=== PATIENT | male | born 1955 | race African-American/Black ===

== ENCOUNTER 2017-08-23 19:43 | Emergency (ER) | payer OTHER ==
[~2017-08-23] VITALS: Ht 180.3 cm; Wt 80.3 kg
[2017-08-23 20:26] LABS: HEMATOCRIT 45.6 % (38.0-50.0); HEMOGLOBIN 14.9 G/DL (12.5-16.6); MCH 25.2 PG (29.0-34.0); MCHC 32.7 G/DL (30.0-36.0); PLATELET COUNT 243 K/uL (156-360); RBC DIS.WIDTH-CV 15.4 % (11.8-14.6); RBC DIS.WIDTH-SD 40.8 % (39-53); RED BLOOD COUNT 5.92 M/uL (4.00-5.50); WHITE BLOOD COUNT 11.8 K/uL (4.1-10.2)
[2017-08-23 20:28] LABS: APPEARANCE CLEAR ((CLEAR)); BILIRUBIN NEGATIVE; BLOOD SMALL; COLOR STRAW ((YELLOW)); GLUCOSE (STRIP) NEGATIVE; KETONES NEGATIVE; LEUKOCYTES NEGATIVE; NITRITE NEGATIVE; PROTEIN (STRIP) NEGATIVE; SPECIFIC GRAVITY 1.012 (1.000-1.030); UROBILINOGEN 0.2 MG/DL (0.2-1.0)
[2017-08-23 20:53] LABS: BACTERIA NONE SEEN /HPF; EPITHELIAL CELLS NONE SEEN /HPF; MUCUS TRACE /LPF; UCUL ADDED? NO; WHITE BLOOD CELLS 0-5 /HPF (0-5)
[2017-08-23 21:06] LABS: CHLORIDE 105 mEq/L (99-109); POTASSIUM 3.9 mEq/L (3.7-5.4); SODIUM 141 mEq/L (136-147)
[2017-08-23 21:07] LABS: GLUCOSE 93 mg/dL (70-99)
[2017-08-23 21:11] LABS: CREATININE 1.1 mg/dL (0.6-1.3)
[2017-08-23 21:12] LABS: UREA NITROGEN (BUN) 10 mg/dL (9-23)
[2017-08-23 21:18] LABS: GFR ESTIMATE (CALCULATED) > 59 mL/min/ (58.99-99999)
[2017-08-23] MEDS ORDERED: PERCOCET 5/31 TABLET PO (23:17)
[2017-08-23] MEDS ORDERED: FLOMAX0.4 MG PO (23:17)
[2017-08-23] MEDS ORDERED: ZOFRAN4 MG PO (23:19)
[2017-08-23 23:47] VITALS: BP 174/89
== END 2017-08-23 23:48 | disposition home or self-care (01) ==
LOC: EXP 19:43 → EME 19:43 → EXP 23:48
DX: N13.2 Hydronephrosis with renal and ureteral calculous obstruction (principal); E11.9 Type 2 diabetes mellitus without complications; F17.200 Nicotine dependence, unspecified, uncomplicated
CPT/HCPCS: 74176; 80048; 81003; 85027; 99281; 99284; J1885

== ENCOUNTER → 2017-09-20 | Outpatient (CLI) | payer OTHER ==
[~2017-09-20] MED LIST: FLOMAX0.4 MG PO; PERCOCET 5/31 TABLET PO; ZOFRAN4 MG PO
== END | disposition home or self-care (01) ==
DX: Z01.818 Encounter for other preprocedural examination (principal); R26.2 Difficulty in walking, not elsewhere classified; R26.9 Unspecified abnormalities of gait and mobility; M25.561 Pain in right knee; M79.604 Pain in right leg; M25.661 Stiffness of right knee, not elsewhere classified; Z74.1 Need for assistance with personal care; M62.81 Muscle weakness (generalized); M17.11 Unilateral primary osteoarthritis, right knee
CPT/HCPCS: 97161 GP; 97165 GO; 97530 GP; 97535 GO

== ENCOUNTER 2017-10-09 22:01 | Inpatient (IN) | payer OTHER ==
[~2017-10-09] VITALS: Ht 177.8 cm; Wt 80.4 kg
[~2017-10-09 22:01] MED LIST changes: +ADULT ASPIRIN81 MG PO; +ATORVASTATIN CA20 MG PO; +ERGOCALCIF50000 UNIT PO; +LISINOPRIL5 MG PO; +METFORMIN HCL850 MG PO; +PERCOCET 10/1 TABLET PO
[2017-10-10 06:07] VITALS: BP 142/83
[2017-10-10 11:02] LABS: HEMATOCRIT 45.7 % (38.0-50.0); HEMOGLOBIN 14.1 G/DL (12.5-16.6); MCH 24.5 PG (29.0-34.0); MCHC 30.9 G/DL (30.0-36.0); MCV 79.3 FL (86-99); RBC DIS.WIDTH-CV 15.2 % (11.8-14.6); RBC DIS.WIDTH-SD 43.7 % (39-53); RED BLOOD COUNT 5.76 M/uL (4.00-5.50); WHITE BLOOD COUNT 8.4 K/uL (4.1-10.2)
[2017-10-10 11:04] VITALS: BP 141/86
[2017-10-10 11:07] LABS: PLAT.SUFFICIENCY ADEQUATE; PLATELET COUNT 278 K/uL (156-360)
[2017-10-10 16:11] VITALS: BP 162/85
[2017-10-10 20:11] VITALS: BP 167/84
[2017-10-10 23:52] VITALS: BP 163/88
[2017-10-11 04:00] VITALS: BP 168/82
[2017-10-11 04:56] LABS: HEMOGLOBIN 13.6 G/DL (12.5-16.6); MCV 76.1 FL (86-99)
[2017-10-11 05:10] LABS: CHLORIDE 104 mEq/L (99-109); SODIUM 138 mEq/L (136-147)
[2017-10-11 05:11] LABS: GLUCOSE 159 mg/dL (70-99)
[2017-10-11 05:15] LABS: CREATININE 1.1 mg/dL (0.6-1.3); GFR ESTIMATE (CALCULATED) > 59 mL/min/ (58.99-99999)
[2017-10-11 05:16] LABS: UREA NITROGEN (BUN) 8 mg/dL (9-23)
[2017-10-11 07:29] VITALS: BP 149/82
[2017-10-11] MEDS ORDERED: OXYCONTIN10 MG PO (08:29)
[2017-10-11] MEDS ORDERED: OXYCODONE HCL5 MG PO (08:29)
[2017-10-11] MEDS ORDERED: LOVENOX40 MG/0.4 SC (08:29)
[2017-10-11 11:52] VITALS: BP 125/74
[2017-10-11 15:34] VITALS: BP 135/73
[2017-10-11 20:09] VITALS: BP 135/74
[2017-10-12] VITALS: BP 146/70
[2017-10-12 04:00] VITALS: BP 126/74
[2017-10-12 06:53] LABS: HEMATOCRIT 39.2 % (38.0-50.0); HEMOGLOBIN 12.7 G/DL (12.5-16.6); MCV 76.1 FL (86-99)
[2017-10-12 07:54] VITALS: BP 131/71
[2017-10-12 12:19] VITALS: BP 114/62
== END 2017-10-12 15:20 | DRG 470 ==
LOC: ENRESERV 22:01 → 2SOUTH 10-10 05:36 → 3WEST 10-10 10:45 → 2SOUTH 10-10 12:00 → 3WEST 10-12 15:20
PROVIDERS: Orthopaedic Surgery
PROC: 0SRC0J9 Replacement of Right Knee Joint with Synthetic Substitute, Cemented, Open Approach (ICD-10-PCS; principal; 2017-10-10)
DX: M17.11 Unilateral primary osteoarthritis, right knee (principal); E11.65 Type 2 diabetes mellitus with hyperglycemia; E78.00 Pure hypercholesterolemia, unspecified; I10 Essential (primary) hypertension; E78.5 Hyperlipidemia, unspecified; I73.9 Peripheral vascular disease, unspecified; F17.200 Nicotine dependence, unspecified, uncomplicated
CPT/HCPCS: 73560; 80048; 82948; 85014; 85018; 85027; 97530 GO; 97530 GP; C1713; J0690; J1170; J1650; J2250; J2795; J7050; S0020

== ENCOUNTER 2017-10-17 18:14 | Emergency (ER) | payer OTHER ==
[~2017-10-17] VITALS: Ht 177.8 cm; Wt 78.1 kg
[~2017-10-17 18:14] MED LIST changes: +LOVENOX40 MG/0.4 SC; +OXYCODONE HCL5 MG PO; +OXYCONTIN10 MG PO
[2017-10-17 20:06] LABS: HEMOGLOBIN 11.5 G/DL (12.5-16.6); MCH 24.8 PG (29.0-34.0); MCHC 32.9 G/DL (30.0-36.0); MCV 75.4 FL (86-99); PLATELET COUNT 397 K/uL (156-360); RBC DIS.WIDTH-CV 13.4 % (11.8-14.6); RBC DIS.WIDTH-SD 36.3 % (39-53); RED BLOOD COUNT 4.64 M/uL (4.00-5.50); WHITE BLOOD COUNT 11.4 K/uL (4.1-10.2)
[2017-10-17 20:15] LABS: INTER. NORMALIZED RATIO 1.3
[2017-10-17 20:16] LABS: CHLORIDE 99 mEq/L (99-109); SODIUM 136 mEq/L (136-147)
[2017-10-17 20:18] LABS: GLUCOSE 136 mg/dL (70-99)
[2017-10-17 20:22] LABS: CREATININE 1.2 mg/dL (0.6-1.3); GFR ESTIMATE (CALCULATED) > 59 mL/min/ (58.99-99999)
[2017-10-17 20:23] LABS: UREA NITROGEN (BUN) 16 mg/dL (9-23)
[2017-10-17 20:26] LABS: POTASSIUM 4.9 mEq/L (3.7-5.4)
[2017-10-17 21:25] VITALS: BP 158/83
== END 2017-10-17 21:25 | disposition home or self-care (01) ==
LOC: EME 18:14
PROVIDERS: Physician Assistant
DX: M96.830 Postprocedural hemorrhage of a musculoskeletal structure following a musculoskeletal system procedure (principal); Z96.651 Presence of right artificial knee joint; Z98.890 Other specified postprocedural states; E11.9 Type 2 diabetes mellitus without complications; F17.200 Nicotine dependence, unspecified, uncomplicated; Z87.442 Personal history of urinary calculi; Z79.84 Long term (current) use of oral hypoglycemic drugs; Z79.82 Long term (current) use of aspirin; Z91.040 Latex allergy status
CPT/HCPCS: 80048; 85027; 85610; 85730; 99281; 99284